=== PATIENT | female | born 1980 | race Two or more races ===

== ENCOUNTER 2023-01-21 08:17 | Emergency (ER) | payer OTHER ==
[~2023-01-21] VITALS: Ht 165.1 cm; Wt 95.3 kg
== END 2023-01-21 14:20 | disposition home or self-care (01) ==
LOC: ER 08:17
DX: N23 Unspecified renal colic (principal); Z88.8 Allergy status to other drugs, medicaments and biological substances; Z88.5 Allergy status to narcotic agent

== ENCOUNTER 2025-04-01 13:58 | Emergency (ER) | payer OTHER ==
[~2025-04-01] VITALS: Ht 162.6 cm; Wt 99.8 kg
[2025-04-01 14:54] VITALS: BP 124/80; O2SAT 100
[2025-04-01] MEDS ORDERED: FAMOTIDINE/PF 20 MG/2 ML VIAL IV ONE (15:30)
[2025-04-01] MEDS ORDERED: FAMOTIDINE/PF 20 MG/2 ML VIAL ONE (15:35)
[2025-04-01 16:28] LABS: URINE APPEARANCE Clear; URINE BILIRRUBIN Negative (NEGATIVE); URINE BLOOD Negative; URINE COLOR Yellow; URINE GLUCOSE Negative (NEGATIVE); URINE KETONE Negative (NEGATIVE); URINE LEUKOCYTE Trace; URINE NITRATE Negative; URINE PROTEIN Negative (NEGATIVE); URINE UROBILINOGEN 1.0 E.U./dl
[2025-04-01 16:31] LABS: URINE BACTERIA 121.1 uL (0.0-1933); URINE EPITHELIAL CELLS 6.6 uL (0.0-38.8); URINE RBC 4.1 uL (0.0-20.8); URINE WBC 11.6 uL (0.0-23.2)
[2025-04-01 16:34] LABS: BASO % 0.2 % (0.1-1.2); EOS # 0.37 (0.04-0.54); EOS % 4.5 % (0.7-7.0); LYMPH # 2.09 (1.18-3.74); LYMPH % 25.4 % (19.3-53.1); MEAN PLATELET VOLUME 9.70 fl (9.4-12.4); MONO # 0.55 (0.24-0.82); MONO % 6.7 % (4.7-12.5); NEUT # 5.19 (1.56-6.13); NEUT % 63.1 % (34.0-71.1); RED CELL DISTRIBUTION WIDTH 13.2 % (11.6-14.4)
[2025-04-01 16:53] LABS: URINE CAST 0.14 uL (0.0-1.40)
[2025-04-01 16:59] LABS: ALT/SGPT 26 U/L (12-78); AST/SGOT 18 U/L (15-37); BILIRUBIN TOTAL 0.37 mg/dL (0.3-1.2); BILIRUBIN,CONJUGATED < 0.10 mg/dL (0.0-0.2); BUN CREA RATIO 17 (7.0-25.0); CREATININE SERUM 0.71 mg/dL (0.55-1.02); GFR 89.43; GLOBULINA 3.8 G/DL (2.4-3.5); GLUCOSE FASTING 88 mg/dL (65-100); OSMOLALITY SERUM 282 MOSM/KG (275-295)
[2025-04-01] MEDS ORDERED: KETO10TA2 PO (17:49)
[2025-04-01] MEDS ORDERED: ZOVIRAX800 MG PO (17:49)
[2025-04-01] MEDS ORDERED: KETOROLAC TROMETHAMINE 30 MG VIAL ONE (17:56)
[2025-04-01] MEDS ORDERED: KETOROLAC TROMETHAMINE 30 MG VIAL IV ONE (18:00)
== END 2025-04-01 18:31 | disposition home or self-care (01) ==
LOC: ER 13:58
PROVIDERS: Preventive Medicine Public Health & General Preventive Medicine
DX: B02.9 Zoster without complications (principal); Z88.8 Allergy status to other drugs, medicaments and biological substances

== ENCOUNTER → 2025-05-18 07:11 | Outpatient (CLI) | payer OTHER ==
[~2025-05-18 07:11] MED LIST: KETO10TA2 PO; ZOVIRAX800 MG PO
== END | disposition home or self-care (01) ==
LOC: NUCLEAR 06:00
DX: M25.50 Pain in unspecified joint (principal); R26.2 Difficulty in walking, not elsewhere classified; G89.29 Other chronic pain; R53.83 Other fatigue; M79.7 Fibromyalgia